=== PATIENT | female | born 1945 | race Caucasian/White ===

== ENCOUNTER → 2016-06-28 | Outpatient (CLI) | payer BC ==
[2015-02-08 10:45] VITALS: BP 172/73
--- NOTE | 2016-06-28 16:08 | KCIC ---
PROCEDURE Two-view chest HISTORY Chronic cough. COMPARISON None FINDINGS The cardiac silhouette is borderline prominent. Mild prominence of the central pulmonary vasculature as well. No evidence of pneumothorax. No pleural effusion. No focal airspace consolidation. Small dense nodule in the right midlung, most compatible with a granuloma. There is thoracic spondylosis with osteophytes. IMPRESSION 1. No evidence of focal airspace consolidation. 2. Borderline prominence of cardiac silhouette and central pulmonary vasculature, but without overt radiographic evidence of congestive failure. Electronically signed by: Abilio Mayer MD (Jun 28, 2016 16:06:30)
== END | disposition home or self-care (01) ==
LOC: KCIC 15:33
PROVIDERS: ATTEND Internal Medicine
DX: R05 Cough (principal)
CPT/HCPCS: 71020

== ENCOUNTER → 2016-11-18 | Outpatient (CLI) | payer BC ==
[2015-02-08 10:45] VITALS: BP 172/73
--- NOTE | 2016-11-18 09:44 | KCIC ---
Complete abdominal ultrasound History:AAA screening. Right flank pain. Findings: Aorta: 2.1 cm maximum transverse diameter. Inferior vena cava: Patent Pancreas: Unremarkable Liver: Coarse echogenicity compatible with fatty infiltration. Gallbladder: Surgically absent. Bile ducts: Common bile duct measures 7 mm. Right kidney: 11.0 cm length. Mild dilatation of the right renal pelvis. No evidence of a shadowing calculus. Left kidney: 11.0 cm longitudinal without hydronephrosis. Spleen: Upper limits normal size, 12.4 cm. Impression: 1. Aortic ectasia without aneurysmal dilatation. 2. Mild dilatation of the right renal pelvis. This may be due to a normal extrarenal pelvis. Mild hydronephrosis is possible. Electronically signed by: Abilio Mayer MD (11/18/2016 9:40 AM) [facility]-KCIC[facility]
== END | disposition home or self-care (01) ==
LOC: KCIC US 08:41
PROVIDERS: ATTEND Internal Medicine
DX: Z13.6 Encounter for screening for cardiovascular disorders (principal); R10.9 Unspecified abdominal pain
CPT/HCPCS: 76700

== ENCOUNTER → 2016-11-24 | Outpatient (CLI) | payer BC ==
[2015-02-08 10:45] VITALS: BP 172/73
[~2016-11-24] MED LIST: AMLO5TAB2 PO; ASPI-482 PO; CYCL5TAB PO; HYDR12.53 PO; IOHEXOL 300 MG/ML 100ML VIAL. IV ONE; IRBE75TA2 PO; LORA0.5T PO; MONT10TA6 PO; THYR30TA PO
--- NOTE | 2016-11-24 16:22 | KCIC ---
CT study of the abdomen and pelvis with and without contrast-CT urogram Clinical indications: Right flank pain. Hydronephrosis seen on recent sonogram dated November 18, 2016. TECHNIQUE: Noncontrast helical CT scanning of the abdomen and pelvis was performed. Following IV infusion of 95 cc of Omnipaque 300, repeat helical CT scanning of the abdomen was performed dynamically at 70 seconds and in delayed fashion after [address] scanning of the pelvis was performed in delayed fashion after 8 minutes. Using a MIP algorithm, 3-D reconstructed CT urogram was performed. PQRS compliance Statement One or more of the following individualized dose reduction techniques were utilized for this study: 1. Automated exposure control 2. Adjustment of the mA and/or kV according to patient size 3. Use of iterative reconstruction technique COMPARISON: No previous CT study available. FINDINGS: No renal stone or ureteral stone or hydronephrosis or hydroureter is seen. No filling defects are seen within the upper urinary tract on either side or within the lumen of the urinary bladder. No renal mass is seen. No adrenal mass is evident. The spleen measures 13 cm in length which is at the upper limits of normal. The liver is homogeneous. The pancreas is homogeneous. The gallbladder is surgically absent. No extrahepatic biliary ductal dilatation is seen. No focal aneurysmal dilatation of the abdominal aorta is seen. No enlarged abdominal or pelvic lymphadenopathy is seen. Colonic diverticulosis is seen most severely involving the sigmoid colon without diverticulitis. The appendix is normal. The terminal ileum is unremarkable. No obstructive bowel pattern is seen. No free air or free fluid or mesenteric inflammatory change is seen. There is some linear atelectasis or scarring of the posterior right lung base. There is a 3 mm noncalcified nodule of the inferior aspect of the right middle lobe. No osteolytic process is seen. IMPRESSION: No urinary tract stone or hydronephrosis or hydroureter is evident. No renal mass is seen. No acute abnormality of the abdomen or pelvis is evident. Noncalcified 3 mm right middle lobe lung nodule. This may be followed with a chest CT and IV contrast in 12 months to ensure stability. Electronically signed by: Nabor Rolle MD (11/24/2016 4:18 PM) [id number]
== END | disposition home or self-care (01) ==
LOC: KCIC CT 09:09
PROVIDERS: ATTEND Internal Medicine
DX: N13.30 Unspecified hydronephrosis (principal)
CPT/HCPCS: 74178

== ENCOUNTER → 2018-05-18 | Outpatient (CLI) | payer BC ==
[2015-02-08 10:45] VITALS: BP 172/73
[~2018-05-18] MED LIST changes: -AMLO5TAB2 PO; +AMLO5TAB7 PO; -HYDR12.53 PO; +HYDR12.575 PO; -IOHEXOL 300 MG/ML 100ML VIAL. IV ONE
--- NOTE | 2018-05-18 11:28 | CARD ---
MR#: [id number] Date of Study: 05/18/2018 Ordering Physician: BOB RILEY, Referring Physician: BOB RILEY, Tech: Sherly Vazquez APPROVED REPORT EXAM: Two-dimensional and M-mode echocardiogram with Doppler and color Doppler. Other Information Quality : FairHR: 74bpm INDICATION CAD RISK FACTORS Hypertension 2D DIMENSIONS RVDd2.1 (2.9-3.5cm)Left Atrium(2D)3.3 (1.6-4.0cm) IVSd1.0 (0.7-1.1cm)Aortic Root(2D)2.6 (2.0-3.7cm) LVDd4.8 (3.9-5.9cm)LVOT Diameter2.0 (1.8-2.4cm) PWd1.0 (0.7-1.1cm)LVDs2.6 (2.5-4.0cm) FS (%) 45.1 %SV82.8 ml LVEF(%)76.3 (>50%) Aortic Valve AoV Peak Jono.166.8cm/sAoV VTI35.4cm AO Peak GR.11.1mmHgLVOT Peak Jono.95.2cm/s LVOT VTI 22.48cmAO Mean GR.6mmHg TIANA (VMAX)1.26ng0PDL (VTI)2.06cm2 AI P 1/2 Odrc078ig Mitral Valve MV E Vzruvjty906.5cm/sMV DECEL TEKT070uj MV A Celdqwii617.4cm/sMV VBY47vt E/A Ratio1.0MVA (PHT)2.86cm2 TDI E/Lateral E'16.8E/Medial E'17.0 Pulmonary Valve PV Peak Mrsgceih024.3cm/sPV Peak Grad.7mmHg Tricuspid Valve TR P. Ptpgjuzg869rs/sRAP UYOKCKFR0gnHh TR Peak Gr.82sjCvQKDP35qzMt Pulmonary Vein S1 Denfyyzl24.9cm/sD2 Eourpfad46.0cm/s PVa qyshdnjd740wjzb LEFT VENTRICLE The left ventricle is normal size. There is normal left ventricular wall thickness. The left ventricu lar systolic function is normal and the ejection fraction is within normal range. The Ejection Fracti on is >55%. There is normal LV segmental wall motion. The left ventricular diastolic function and greer ling is normal for age. RIGHT VENTRICLE The right ventricle is normal size. The right ventricle is borderline hypertrophied. The right ventri cular systolic function is normal. ATRIA The left atrium size is normal. The right atrium size is normal. The interatrial septum is intact wit h no evidence for an atrial septal defect or patent foramen ovale as noted on 2-D or Doppler imaging. AORTIC VALVE The aortic valve is mildly thickened. Doppler and Color Flow revealed trace aortic regurgitation. The re is no significant aortic valvular stenosis. MITRAL VALVE The mitral valve is thickened but opens well. Mitral annular calcification is mild. There is no evide nce of mitral valve prolapse. There is no mitral valve stenosis. Doppler and Color-flow revealed trac e mitral regurgitation. TRICUSPID VALVE The tricuspid valve is not well visualized. Doppler and Color Flow revealed trace tricuspid regurgita tion. There is no tricuspid valve stenosis. PULMONIC VALVE The pulmonic valve is not well visualized. Doppler and Color Flow revealed trace to mild pulmonic bassam vular regurgitation. There is no pulmonic valvular stenosis. GREAT VESSELS The aortic root is normal in size. The IVC is normal in size and collapses >50% with inspiration. PERICARDIAL EFFUSION There is no evidence of significant pericardial effusion. Critical Notification Critical Value: No <Conclusion> The left ventricular systolic function is normal and the ejection fraction is within normal range. Th e Ejection Fraction is >55%. There is normal LV segmental wall motion. Signed by : Bob Riley, Electronically Approved : 05/18/2018 11:26:47
== END | disposition home or self-care (01) ==
LOC: ECHO 09:01
PROVIDERS: ATTEND Internal Medicine Cardiovascular Disease
DX: I25.10 Atherosclerotic heart disease of native coronary artery without angina pectoris (principal); I10 Essential (primary) hypertension
CPT/HCPCS: 93306

== ENCOUNTER → 2019-11-25 | Outpatient (CLI) | payer BC ==
[2015-02-08 10:45] VITALS: BP 172/73
[~2019-11-25] MED LIST changes: +AMLO5TAB10 PO; -AMLO5TAB7 PO; +MONT10TA49 PO; -MONT10TA6 PO; +REGADENOSON 0.4 MG/5 ML DISP.SYRIN. IV ONE
--- NOTE | 2019-11-25 12:11 | RAD ---
MR#: [id number] Date of Study: 11/25/2019 Ordering Physician: BOB RILEY, Referring Physician: SAMIR OLIVERA Tech: DEENA Verma APPROVED REPORT Test Type: Pharmacological Stress Nurse/Tech: Yary Taylor RN Test Indications: CAD Cardiac History: Stress test 2011, 2 Cardiac stents 2011, HTN, See EMR Medications: ASA, See EMR Medical History: See EMR Resting ECG: SR Resting Heart Rate: 68 bpm Resting Blood Pressure: 146/50mmHg Pretest Chest Pain: No chest pain Nurse/Tech Notes Lungs CTA, Heart tones regular. Consent: The procedure was explained to the patient in lay terms. Informed consent was witnessed. Marc eout was entered into [employer]. History and Stress Test performed by CHARLES Capone, KIMO (R) (N) Pharm. Details Pharmacologic stress testing was performed using 0.4mg per 5ml of regadenoson given intravenously ove r 7-10 seconds. Stress Symptoms No chest pain or symptoms. POST EXERCISE Reason for Termination: Infusion complete Max HR: 93 bpm Max Blood Pressure: 146/51mmHg Blood Pressure response to exercise: Normal blood pressure response during stress. Heart Rate response to exercise: WNL Chest Pain: No. Arrhythmia: No. ST Change: No. INTERPRETATION Stress EKG Conclusion: No evidence of stress induced ischemic changes. Non-specific st/t changes. Imaging Protocol IMAGE PROTOCOL: Rest Tc-99m/stress Tc-99m 1 day Rest: Stress: Viability: Radiopharm.Tc99m DuwwbuutgJk48i Sestamibi Hmis14nBc 33mCi Duration 15min. 10min. Img Date 11/25/2019 11/25/2019 Inj-Img Mdpz26rgg. 60min. Rest Admin Site:IV - Right AntecubitalAdministrator:DEENA Verma Stress Admin Site: IV - Right AntecubitalAdministrator: CHARLES Capone, ELENAT (R)(N) STRESS DATA End Diast. Vol.52.0mlEnd Syst. Vol.9.0ml Myocardial Mass96.0gEject. Tqxgfjfs56.0% Stress Scores Regional WT0.00Summed WT0.00 Regional WM0.00Summed WM0.00 The rest and stress images show normal perfusion, normal contraction and thickening. LV Perf. Quant 17 Seg. SSS1.00 17 Seg. SRS0.00 17 Seg. SDS1.00 Stress Defect Extent (% LAD)0.00Rest Defect Extent (% LAD)0.00Rev. Defect Extent (% LAD)0.00 Stress Defect Extent (% LCX) 0.00Rest Defect Extent (% LCX)7.50Rev. Defect Extent (% LCX)0.00 Stress Defect Extent (% RCA)0.00Rest Defect Extent (% RCA)0.00Rev. Defect Extent (% RCA)0.00 Stress Defect Extent (% ESTHER)0.00Rest Defect Extent (% ESTHER)1.30Rev. Defect Extent (% ESTHER)0.00 Other Information Quality:Good Risk Assessment: Low Risk Conclusion 1. No evidence of stress induced EKG changes. 2. Normal perfusion at stress/rest. 3. Normal EF at > 70% 4. Low risk study Signed by : Bob Riley, Electronically Approved : 11/25/2019 12:10:55
== END | disposition home or self-care (01) ==
LOC: NM 09:25
PROVIDERS: ATTEND Internal Medicine Cardiovascular Disease
DX: I25.10 Atherosclerotic heart disease of native coronary artery without angina pectoris (principal); I10 Essential (primary) hypertension; Z95.5 Presence of coronary angioplasty implant and graft
CPT/HCPCS: 78452; 93017; A9500; J2785

== ENCOUNTER → 2020-10-08 | Outpatient (CLI) | payer BC ==
[2015-02-08 10:45] VITALS: BP 172/73
[~2020-10-08] MED LIST changes: +AMLO-186 PO; -AMLO5TAB10 PO; -REGADENOSON 0.4 MG/5 ML DISP.SYRIN. IV ONE
--- NOTE | 2020-10-08 16:57 | CARD ---
MR#: [id number] Date of Study: 10/08/2020 Ordering Physician: BOB YEPEZ, Referring Physician: BOB YEPEZ, Tech: Sherly Vazquez, [facility] APPROVED REPORT EXAM: Two-dimensional and M-mode echocardiogram with Doppler and color Doppler. Other Information Quality : AverageHR: 70bpm INDICATION Cardiac Disease: CAD RISK FACTORS Hypertension 2D DIMENSIONS Left Atrium(2D)2.9 (1.6-4.0cm)IVSd1.2 (0.7-1.1cm) Aortic Root(2D)3.0 (2.0-3.7cm)LVDd5.1 (3.9-5.9cm) LVOT Diameter2.0 (1.8-2.4cm)PWd1.0 (0.7-1.1cm) LVDs2.5 (2.5-4.0cm) Aortic Valve AoV Peak Jono.174.8cm/sAoV VTI37.8cm AO Peak GR.12.2mmHgLVOT Peak Jono.124.4cm/s LVOT VTI 27.80cmAO Mean GR.7mmHg Mitral Valve MV E Dtuhcjxp19.5cm/sMV DECEL LAXC968xh MV A Ymjjvqln81.3cm/sMV AMY91ni E/A Ratio1.0MVA (PHT)2.44cm2 TDI E/Lateral E'15.8E/Medial E'13.0 Pulmonary Valve PV Peak Wgwfyxsc715.2cm/sPV Peak Grad.4mmHg Tricuspid Valve TR P. Lrlusdua518hn/sTR Peak Gr.21mmHg Pulmonary Vein S1 Aoxtetzb01.0cm/sD2 Zxdtdmne04.9cm/s PVa tiznrtem712snuo LEFT VENTRICLE The left ventricle is normal size. There is normal left ventricular wall thickness. The left ventricu lar systolic function is normal. The ejection fraction is 55-60%. There is normal LV segmental wall m otion. Transmitral Doppler flow pattern is Grade II-pseudonormal filling dynamics. No left ventricle thrombus noted on this study. RIGHT VENTRICLE The right ventricle is normal size. There is normal right ventricular wall thickness. The right ventr icular systolic function is normal. ATRIA The left atrium size is normal. The right atrium size is normal. The interatrial septum is intact wit h no evidence for an atrial septal defect or patent foramen ovale as noted on 2-D or Doppler imaging. AORTIC VALVE The aortic valve is normal in structure and function. Doppler and Color Flow revealed trace aortic re gurgitation. Calculated aortic valve area is 2.25 cm2 with maximum pressure gradient of 13 mmHg and m jon pressure gradient of 8 mmHg There is no significant aortic valvular stenosis. MITRAL VALVE Mitral annular calcification is mild. There is no evidence of mitral valve prolapse. There is no mitr al valve stenosis. Doppler and Color-flow revealed trace mitral regurgitation. TRICUSPID VALVE The tricuspid valve is normal in structure and function. Doppler and Color Flow revealed trace tricus pid regurgitation with an estimated PAP of 26 mmHg. There is no tricuspid valve stenosis. PULMONIC VALVE The pulmonic valve is not well visualized. Doppler and Color Flow revealed trace pulmonic valvular re gurgitation. GREAT VESSELS The aortic root is normal in size. The IVC is normal in size and collapses >50% with inspiration. PERICARDIAL EFFUSION There is no evidence of significant pericardial effusion. Critical Notification Critical Value: No <Conclusion> The left ventricular systolic function is normal. The ejection fraction is 55-60%. There is normal LV segmental wall motion. Transmitral Doppler flow pattern is Grade II-pseudonormal filling dynamics. Trace mitral regurgitation. Trace tricuspid regurgitation with an estimated PAP of 26 mmHg. There is no evidence of significant pericardial effusion. Signed by : Nathanael Taylor, Electronically Approved : 10/08/2020 16:57:06
== END ==
LOC: ECHO 09:45
PROVIDERS: ATTEND Internal Medicine Cardiovascular Disease
DX: I34.0 Nonrheumatic mitral (valve) insufficiency (principal); I25.10 Atherosclerotic heart disease of native coronary artery without angina pectoris
CPT/HCPCS: 93306

== ENCOUNTER → 2021-02-01 | Outpatient (CLI) | payer MEDICARE, BC ==
[2015-02-08 10:45] VITALS: BP 172/73
--- NOTE | 2021-02-01 15:10 | KCIC ---
EXAM: Left hand, 3 views. HISTORY: Pain. COMPARISON: None. FINDINGS: 3 views of the left hand are obtained. There is moderate first carpometacarpal joint space narrowing and spurring. There is mild first interphalangeal joint spurring and moderate to severe sec ond through fifth distal interphalangeal joint space narrowing and spurring. There is also mild fifth proximal interphalangeal joint space narrowing and spurring. There is suspected bone demineralizatio n. There is no foreign body. IMPRESSION: 1. 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 2. No acute osseous finding. Electronically signed by: Toña Collins MD (02/01/2021 3:07 PM) [id number]
== END ==
LOC: KCIC 14:41
PROVIDERS: ATTEND Internal Medicine Rheumatology
DX: M19.042 Primary osteoarthritis, left hand (principal); M77.8 Other enthesopathies, not elsewhere classified
CPT/HCPCS: 73130-50

== ENCOUNTER → 2021-06-22 | Outpatient (CLI) | payer BC, MEDICARE ==
[2015-02-08 10:45] VITALS: BP 172/73
--- NOTE | 2021-06-22 17:05 | KCIC ---
US VENOUS REFLUX History: Reason: LEG SWELLING / Spl. Instructions: / History: Comparison: None. Technique: Multiple longitudinal and transverse high resolution real-time images of the venous system of bilateral lower extremity were obtained with color and Doppler sampling. Findings: Patent bilateral greater saphenous and lesser saphenous veins. No occlusion. No evidence of reflux. Impression: 1. No evidence of lower extremity superficial vein reflux or occlusion. Electronically signed by: Anand Sandoval DO (06/22/2021 5:02 PM) [facility]
== END ==
LOC: KCIC US 12:21
PROVIDERS: ATTEND Internal Medicine Cardiovascular Disease
DX: M79.89 Other specified soft tissue disorders (principal)
CPT/HCPCS: 93970